=== PATIENT | female | born 1995 | race Caucasian/White ===

== ENCOUNTER 2018-05-16 08:32 | Day surgery (SDC) | payer BC ==
[~2018-05-16 08:32] MED LIST: DEXAMETHASONE 4 MG/ML 1 ML INJ; SUCCINYLCHOLINE CHLORIDE 100 MG/5 ML SYG IV
[2018-05-16 09:49] LABS: ADD MAN DIFF? NO
[2018-05-16 09:50] LABS: BASOPHIL # 0.1 10^3/ul (0.0-0.1); BASOPHILS % 0.5 % (0.0-2.0); EOSINOPHILS # 0.1 10^3/ul (0.0-0.5); EOSINOPHILS % 1.3 % (0.0-7.0); HEMATOCRIT 39.3 % (37.0-47.0); HEMOGLOBIN 12.6 g/dl (12.0-16.0); LYMPHOCYTES # 3.6 10^3/ul (0.8-2.9); LYMPHOCYTES % 35.9 % (15.0-51.0); MEAN CORPUSCULAR HEMOGLOBIN 27.6 pg (29.0-33.0); MEAN CORPUSCULAR HGB CONC 32.1 g/dl (32.0-37.0); MEAN CORPUSCULAR VOLUME 86.2 fl (82.0-101.0); MEAN PLATELET VOLUME 12.4 fl (7.4-10.4); MONOCYTE # 0.7 10^3/ul (0.3-0.9); MONOCYTES % 6.8 % (0.0-11.0); NEUTROPHIL # 5.6 10^3/ul (1.6-7.5); NEUTROPHILS % 55.2 % (39.0-77.0); PLATELET COUNT 262 10^3/UL (140-415); RED BLOOD COUNT 4.56 10^6/ul (4.20-5.40); RED CELL DISTRIBUTION WIDTH 14.4 % (11.5-14.5)
[2018-05-16] MEDS ORDERED: SOD CHLORIDE 0.9% 1,000 ML IV (10:00)
[2018-05-16] MEDS ORDERED: CEFAZOLIN 1 GM/50 ML (PMX) 50 ML IVPB (10:00)
[2018-05-16 10:15] LABS: ALANINE AMINOTRANSFERASE 77 IU/L (13-69); ALBUMIN 4.6 g/dl (3.3-4.9); ALBUMIN/GLOBULIN RATIO 1.27; ALKALINE PHOSPHATASE 71 IU/L (42-121); ANION GAP 15 (8-16); ASPARTATE AMINO TRANSFERASE 45 IU/L (15-46); BILIRUBIN,INDIRECT 0.5 mg/dl (0-1.1); BILIRUBIN,TOTAL 0.5 mg/dl (0.2-1.3); BLOOD UREA NITROGEN 15 mg/dl (7-20); CALCIUM 9.3 mg/dl (8.4-10.2); CARBON DIOXIDE 23 mmol/L (21-31); CHLORIDE 108 mmol/L (97-110); CREATININE 0.51 mg/dl (0.44-1.00); GLUCOSE 88 mg/dl (70-220); POTASSIUM 4.3 mmol/L (3.5-5.1); SODIUM 142 mmol/L (135-144); TOTAL PROTEIN 8.2 g/dl (6.1-8.1)
[2018-05-16 10:18] LABS: INR 1.09; PROTIME 14.2 Sec (11.9-14.9); PT RATIO 1.1
[2018-05-16 10:19] LABS: PARTIAL THROMBOPLASTIN TIME 31.7 Sec (25.0-35.0)
[2018-05-16] MEDS ORDERED: LIDOCAINE 2% (SDV) 5 ML INJ (10:23)
[2018-05-16] MEDS ORDERED: ROCURONIUM 50 MG INJ (10:23)
[2018-05-16] MEDS ORDERED: PROPOFOL 20 ML (10:23)
[2018-05-16] MEDS ORDERED: FENTAnyl 50 MCG/ML VIAL ×2 (10:23→12:01)
[2018-05-16] MEDS ORDERED: MIDAZOLAM 1 MG/ML 2 ML INJ (10:24)
[2018-05-16] MEDS ORDERED: KETOROLAC 30 MG INJ (11:17)
[2018-05-16] MEDS ORDERED: CEFAZOLIN 1 GM INJ (11:17)
[2018-05-16] MEDS ORDERED: DEXAMETHASONE 4 MG/ML 1 ML INJ (11:17)
[2018-05-16] MEDS ORDERED: ONDANSETRON 4 MG INJ (11:17)
[2018-05-16] MEDS ORDERED: ACETAMINOPHEN 1000MG/100ML IV 100 ML (11:22)
[2018-05-16] MEDS: BUPIVACAINE 0.25%/EPI (MDV) 50 ML VIAL INJ (11:50)
[2018-05-16] MEDS ORDERED: SUGAMMADEX SODIUM 200 MG/2 ML VIAL IV (12:44)
[2018-05-16] MEDS ORDERED: IBUPROFEN 600 MG TAB PO (13:00)
[2018-05-16] MEDS ORDERED: ONDANSETRON 4 MG INJ IV ×2 (13:00→13:30)
[2018-05-16] MEDS ORDERED: KETOROLAC 30 MG INJ IV (13:00)
[2018-05-16] MEDS ORDERED: DIPHENHYDRAMINE 50 MG INJ IV (13:30)
[2018-05-16] MEDS ORDERED: HYDROmorphONE 1 MG/5 ML IV SYRINGE IV (13:30)
[2018-05-16] MEDS ORDERED: MEPERIDINE 25 MG INJ IV (13:30)
[2018-05-16] MEDS: morphine 2 MG INJ IV (13:40)
[2018-05-16] MEDS: HYDROmorphONE 1 MG/5 ML IV SYRINGE IV (13:40)
== END 2018-05-16 17:00 | disposition home or self-care (01) ==
LOC: SDS 08:32
DX: D17.1 Benign lipomatous neoplasm of skin and subcutaneous tissue of trunk (principal); E66.9 Obesity, unspecified; Z68.42 Body mass index [BMI] 45.0-49.9, adult
CPT/HCPCS: 21933; 80053; 85025; 85610; 85730; 88307

== ENCOUNTER 2018-05-20 13:09 | Emergency (ER) | payer BC ==
[2018-05-20] MEDS: LIDOCAINE 1% (MDV) 10 ML INJ INFIL (14:42)
== END 2018-05-20 15:50 | disposition home or self-care (01) ==
LOC: FTE 13:09
DX: M96.842 Postprocedural seroma of a musculoskeletal structure following a musculoskeletal system procedure (principal); J45.909 Unspecified asthma, uncomplicated
CPT/HCPCS: 10140; 99282-25

== ENCOUNTER 2018-05-22 11:17 | Emergency (ER) | payer BC | END 2018-05-22 12:56 | disposition home or self-care (01) | LOC: FTE 11:17 | DX: M96.842 Postprocedural seroma of a musculoskeletal structure following a musculoskeletal system procedure (principal); J45.909 Unspecified asthma, uncomplicated | CPT/HCPCS: 87070; 99283 ==